=== PATIENT | female | born 2000 | race Caucasian/White ===

== ENCOUNTER 2018-01-08 20:28 | Outpatient (REF) | payer OTHER, SELFPAY ==
[2018-01-08 21:34] LABS: Hemoglobin A1C 5.4 % (4.5-6.2)
[2018-01-08 21:48] LABS: Cholesterol 241 mg/dL (50-200); HDL Cholesterol 64 mg/dL (40-60); LDL CHOLESTEROL 159 mg/dL (<100); TSH 1.99 uIU/mL (0.516-4.13); Triglyceride 101 mg/dL (30-150)
== END 2018-01-08 20:29 ==
LOC: NCHCN 20:28
PROVIDERS: PCP Nurse Practitioner Family; Visit Provider Nurse Practitioner Family
DX: Z00.00 Encounter for general adult medical examination without abnormal findings (principal); E66.9 Obesity, unspecified
CPT/HCPCS: 80061; 83721; 83036; 84443